=== PATIENT | female | born 2000 | race Caucasian/White ===

== ENCOUNTER 2019-08-30 10:44 | Emergency (ER) | payer OTHER ==
[~2019-08-30] VITALS: Ht 175.3 cm; Wt 65.8 kg
--- NOTE | 2019-08-30 10:46 | NUR ---
PT ZAYRA BLS TO ER BED 08
[2019-08-30 10:47] VITALS: BP 122/75
--- NOTE | 2019-08-30 10:55 | NUR ---
19 Y/O F BIB [facility] FROM [facility] C/O NON RADIATING RT SIDED CHEST PAIN X 1 HOUR. PAIN LEVEL 4/10 CONSTANT, SHARP PAIN. PER PT SHE WAS AWAKE FOR 2 HOURS WHEN ONSET OF SUDDEN PAIN STARTED. IV 18 GAUGE ESTABLISHED ON SCENE IN LEFT AC. PT WAS GIVIEN ASPIRIN ON SCENE. PT AWAKE AND ALERT. VSS. ALLERGIES: LATEX. NO MED HX. SAFETY MEASURES IN PLACE. ERMD MADE AWARE OF PT STATUS.
--- NOTE | 2019-08-30 10:57 | NUR ---
DR. CHINCHILLA EVALUATING PT AT BEDSIDE.
--- NOTE | 2019-08-30 10:58 | NUR ---
Patient discharged by Dr. Rizo with v/s stable. Written and verbal after care instructions given and explained. Patient alert, oriented and verbalized understanding of instructions. Ambulatory with steady gait. All questions addressed prior to discharge. ID band removed. Patient advised to follow up with PMD. Rx of nAPROSYN 500 mg was given. Patient educated on indication of medication including possible reaction and side effects. Opportunity to ask questions provided and answered.
[2019-08-30 11:09] VITALS: BP 127/71
== END 2019-08-30 10:58 | disposition home or self-care (01) ==
LOC: MED 10:44
DX: M94.0 Chondrocostal junction syndrome [Tietze] (principal); F41.9 Anxiety disorder, unspecified
CPT/HCPCS: 93005; 99283